=== PATIENT | male | born 1960 | race Caucasian/White ===

== ENCOUNTER 2024-07-15 07:32 | Outpatient (RCR) | payer OTHER, SELFPAY ==
--- NOTE | 2024-07-15 10:35 | CTCCONSULT_ITS ---
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 Carter REASON FOR CONSULTATION: Lung cancer HISTORY OF PRESENT ILLNESS: 64-year-old male with a lung cancer initially diagnosed in 2022 and treated with SBRT. Patient has s quamous cell cancer which has now locally advanced. Patient was noted to have multiple lymph node in volvement but no distant metastasis in the last scan in April. No PET/CT was done Patient have not received any treatment systemically. No radiation to the brain. 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 GI: No nausea, vomiting, diarrhea or constipation. CVS: No palpitations or angina pains. Respiratory: No cough, chest pain or shortness of breath. VITAL SIGNS: Date 07/15/2024 Time 8:08 AM Vital Signs, Weight and PS ? ??T (F) (F) 99.8 ??P 119 ??B/P (mmHg) 109/66 ??Height (in) (inch) 67 ??Weight (lb) (lb) 173 ??BSA(D) (m*2) 1.9 PHYSICAL EXAMINATION: Conjunctivae is white. Oral cavity is dry. Chest is clear to auscultation. No wheezes or rales audible. CVS: Rhythm regular, no murmurs or gallops present. Abdomen is soft. No hepatosplenomegaly. Extremities: No pedal edema or cyanosis. 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 October 2022 patient was diagnosed with squamous cell cancer of the left upper lobe It was only 1 mass in the left upper lobe and was treated with SBRT in January 2023 Lymphadenopathy and local recurrence occurred and biopsy confirmed 20 May 2024 Repeat biopsy showed squamous cell cancer Patient have not pursued any therapy PLAN: ?Port catheter placement Carboplatin paclitaxel Keytruda NGS panel on the biopsy done in [place] Patient had a biopsy completed in [facility] restaging scans including CT chest abdomen pelvis with IV contrast and MRI brain To evaluate for any metastatic disease to the brain Patient consented for chemotherapy Refer to palliative care for pain management ORDERS: + Follow Up 3 Week + Comprehensive Metabolic Panel - 12 + CBC with Auto Diff Abdomen and Pelvis + With Contrast + Chest + CT Scan MRI + Brain + With Contrast RETURN TO CLINIC: cc: PCP, Referring: Magdaleno Carter Electronically Signed 07/15/2024 at 10:33 AM Vicente Wang MD Patient: SIMONE HUSSEIN : 1960 MR#: [id number] Account: [id number] FOLLOW UP NOTE Page 4 of 4
== END 2024-08-01 23:59 | disposition home or self-care (01) ==
LOC: SCTC 07:32
PROVIDERS: PCP Family Medicine; Referring Provider Internal Medicine Hematology & Oncology; Visit Provider Internal Medicine Hematology & Oncology
DX: C34.12 Malignant neoplasm of upper lobe, left bronchus or lung (principal); Z85.818 Personal history of malignant neoplasm of other sites of lip, oral cavity, and pharynx
CPT/HCPCS: 99213; G0463

== ENCOUNTER → 2024-07-23 | Outpatient (CLI) | payer OTHER, SELFPAY ==
[2024-07-23 11:24] LABS: Basophils % (Auto) 0 % (0-2.5); Eosinophils % (Auto) 0 % (0-10); Hematocrit 34.8 % (41.0-53.0); Hemoglobin 11.1 g/dL (13.5-16.0); Immature Granulocytes % (Auto) 1 % (0-0); Immature Granulocytes Auto 0.15 Thou/mm3 (0.00-0.00); Lymphocytes # (Auto) 1.1 Thou/mm3 (1.0-4.8); Lymphocytes % (Auto) 7 % (10-50); Mean Corpuscular HGB Conc 31.9 g/dl (31.0-37.0); Mean Corpuscular Hemoglobin 26.4 pg (25.0-35.0); Mean Corpuscular Volume 83 fL (80-100); Monocytes % (Auto) 6 % (0-12); Neutrophils # (Auto) 13.5 Thou/mm3 (1.8-7.7); Neutrophils % (Auto) 86 % (37-80); Nucleated Red Blood Cell % 0 /100 WBC (0); Platelet Count 475 Thou/mm3 (140-440); RDW Standard Deviation 44.6 fL (35.1-43.9); Red Blood Count 4.21 Miln/mm3 (4.50-5.90); White Blood Count 15.7 Thou/mm3 (3.8-10.6)
[2024-07-23 11:41] LABS: Alanine Aminotransferase 37 U/L (10-49); Albumin/Globulin Ratio 0.7 (1.2-2.2); Alkaline Phosphatase 149 U/L (46-116); Anion Gap 5 (7-16); Aspartate Amino Transferase 40 U/L (0-34); BUN/Creatinine Ratio 16 Ratio (12-20); Bilirubin,Total 0.4 mg/dL (0.3-1.2); Blood Urea Nitrogen 11 mg/dL (9-23); Calcium 10.6 mg/dL (8.3-10.6); Calcium (Corrected) 11.4 mg/dL (8.5-10.1); Carbon Dioxide 26.9 mMol/L (20.0-31.0); Chloride 95 mMol/L (98-107); Creatinine (Component) 0.7 mg/dL (0.6-1.3); Globulin 4.3 gm/dL (2.3-3.5); Glucose 126 mg/dL (74-106); Osmolality,Calculated 256 (275-295); Potassium 4.2 mMol/L (3.4-5.1); Sodium 127 mMol/L (136-145); Total Protein 7.3 gm/dL (5.7-8.2); eGFR > 60 See Note
== END | disposition home or self-care (01) ==
LOC: SCTO 10:11
PROVIDERS: PCP Family Medicine; Referring Provider Internal Medicine Hematology & Oncology; Visit Provider Internal Medicine Hematology & Oncology
DX: C34.12 Malignant neoplasm of upper lobe, left bronchus or lung (principal)
CPT/HCPCS: 36415; 80053; 85025

== ENCOUNTER → 2024-08-03 | Outpatient (CLI) | payer OTHER, SELFPAY ==
--- NOTE | 2024-08-03 09:35 | PC.NURSE ---
patient arrived for a staple removal. ten mis removed. patient tolerated well. education given to spouse and patient. both expressed verbal understanding.
== END | disposition home or self-care (01) ==
LOC: SIRX 08:59
PROVIDERS: PCP Radiology Diagnostic Radiology; Referring Provider Radiology Diagnostic Radiology; Visit Provider Radiology Diagnostic Radiology
DX: Z48.02 Encounter for removal of sutures (principal)

== ENCOUNTER → 2024-08-04 | Outpatient (CLI) | payer OTHER, SELFPAY ==
--- NOTE | 2024-08-04 12:00 | XR_ITS ---
Examination: CT chest with intravenous contrast CT abdomen with intravenous contrast CT pelvis with intravenous contrast 2-D coronal and sagittal reconstructions Time of exam: August 04, 2024 1308 hours INDICATIONS: Diagnosis lung cancer 2020 restaging, diagnosis malignant neoplasm upper lobe CTDI: vol (mGy) : 15.5 DLP: (mGycm 772 TECHNIQUE: Multiple axial images chest abdomen pelvis post intravenous administration 60 cc [id number] 2-D sagittal coronal reconstructions Low dose protocols, adjustment MA KV according to patient size, iterative reconstruction techniques. FINDINGS: Left upper lobe pulmonary mass, necrotic, 12 x 8.6 x 10.0 cm invading the left mediastinum extending into the aorto pulmonary window Subcarinal lymphadenopathy, 27 mm This mass is encircling in severity compressing the left main pulmonary artery No pulmonary artery emboli on this noncontrast study Pericardial effusion measuring up to 21 mm in thickness Dilated bronchi in the left lung No lobar pneumonia or pulmonary edema No visualized liver or splenic lesion Contracted gallbladder No pancreatic or adrenal mass Aorta normal size No hydronephrosis 3 cm left renal cyst No bowel obstruction No bladder mass No significant prostatomegaly Significant osteopenia IMPRESSION: Left upper lobe pulmonary neoplasm, 12 x 8.6 x 10.0 cm invading the left mediastinum and extending into the aortopulmonary window Subcarinal lymphadenopathy This pulmonary mass is encircling in severity compressing the left main pulmonary artery
== END | disposition home or self-care (01) ==
LOC: CCTX 11:50
PROVIDERS: Referring Provider Internal Medicine Hematology & Oncology; Visit Provider Internal Medicine Hematology & Oncology
DX: R91.1 Solitary pulmonary nodule (principal); R59.0 Localized enlarged lymph nodes; I77.1 Stricture of artery; C34.12 Malignant neoplasm of upper lobe, left bronchus or lung
CPT/HCPCS: 71260; 74177; A4649; Q9967